=== PATIENT | female | born 1960 | race Caucasian/White ===

== ENCOUNTER 2016-11-27 11:12 | Emergency (ER) | payer MEDICARE ==
[~2016-11-27] VITALS: Ht 157.5 cm; Wt 65.0 kg
[2016-11-27] MEDS ORDERED: FLUT12AE2 INH (11:58)
[2016-11-27] MEDS ORDERED: ALBU18HF INH (11:58)
[2016-11-27] MEDS ORDERED: ATEN25TA PO (11:58)
[2016-11-27] MEDS ORDERED: BACL-19 PO (11:58)
[2016-11-27] MEDS ORDERED: FLUT9.9S16 NAS (11:58)
[2016-11-27] MEDS ORDERED: MONT10TA6 PO (11:58)
[2016-11-27] MEDS ORDERED: OXYC5CAP4 PO (11:58)
[2016-11-27 12:38] LABS: HEMATOCRIT 49.1 % (34.6-47.8); HEMOGLOBIN 16.3 g/dL (11.7-16.4)
[2016-11-27 12:46] LABS: BLOOD UREA NITROGEN 16 mg/dL (7-18)
[2016-11-27 12:53] LABS: IS PT STATUS REG ER OR PRE ER? YES
[2016-11-27 14:44] VITALS: BP 136/73
== END 2016-11-27 14:46 | disposition home or self-care (01) ==
LOC: ED 11:54
DX: J20.9 Acute bronchitis, unspecified (principal); J45.909 Unspecified asthma, uncomplicated; R07.2 Precordial pain; I10 Essential (primary) hypertension; Z88.1 Allergy status to other antibiotic agents
CPT/HCPCS: 36415; 71010; 80048; 82040; 84484; 85025; 93005; 99285